=== PATIENT | female | born 1985 | race Caucasian/White ===

== ENCOUNTER 2018-12-05 12:39 | Emergency (ER) | payer OTHER ==
[~2018-12-05] VITALS: Ht 165.1 cm; Wt 56.7 kg
[~2018-12-05 12:39] MED LIST: ALBUTEROL0.09 MG/A2 INH; ANAPROX DS550 MG PO; AUGMENTIN 875 M1 TA1 PO; BACTRIM DS 8001 TA1 PO; BIRTH CONTROL1 EAC1 PO; CIPRO250 MG PO; CIPROFLOXACIN500 MG PO; CLARITIN10 MG PO; CLINDAMYCIN HC300 MG PO; COLACE100 MG PO; COLACE100 MG/10 PO; DIFLUCAN150 MG PO; FLEXERIL10 MG PO; HYDROCODONE BIT1 T11 PO; IRON325 M1 PO; KEFLEX500 MG PO; MACROBID100 M1 PO; MOTRIN800 MG PO; NAPROSYN500 MG PO; NICODERM C7 MG/24 HR TD; NKHM; PERCOCET 325 MG1 TA2 PO; PERCOCET 325 MG1 TA5 PO; PERCOCET 325 MG1 TA6 PO; PHENERGAN25 M3 PO; PRENATAL1 TA2 PO; PYRIDIUM200 MG PO; SILVADENE20 GM T; TRAMADOL HCL50 MG PO; VICODIN ES 7501 TAB PO; ZYRTEC10 MG PO
[2018-12-05 13:29] LABS: BASO # 0.1 10*3/uL (0.0-0.1); BASO % 0.8 % (0.0-1.0); EOS # 0.4 10*3/uL (0.0-0.4); EOS % 3.9 % (1.0-4.0); HEMATOCRIT 35.1 % (37.0-47.0); HEMOGLOBIN 11.3 g/dl (12.0-16.0); LYMPH # 2.4 10*3/uL (1.3-4.4); LYMPH % 23.5 % (27.0-41.0); MEAN CELL VOLUME 88.2 fl (81.0-99.0); MEAN CORPUSCULAR HGB 28.4 pg (27.0-31.0); MEAN CORPUSCULAR HGB CONC 32.2 g/dl (33.0-37.0); MEAN PLATELET VOLUME 10.3 fl (9.6-12.3); MONO # 0.5 10*3/uL (0.1-1.0); MONO % 4.7 % (3.0-9.0); NEUT # 6.9 10*3/uL (2.3-7.9); NEUT % 66.8 % (47.0-73.0); PLATELET COUNT AUTOMATED 218 10*3/uL (130-400); RED BLOOD COUNT 3.98 10*6/uL (4.10-5.10); RED CELL DISTRI WIDTH 14.9 % (0-14.5); WHITE BLOOD COUNT 10.4 10*3/uL (4.8-10.8)
[2018-12-05 13:34] LABS: BILIRUBIN 1+ (NEGATIVE); BLOOD 3+ (NEGATIVE); CLARITY SL CLOUDY (CLEAR); COLOR YELLOW (YELLOW); GLUCOSE NEGATIVE (NEGATIVE); KETONE TRACE (NEGATIVE); LEUKO ESTERASE NEGATIVE (NEGATIVE); NITRITE NEGATIVE (NEGATIVE); SPECIFIC GRAVITY 1.025 (1.005-1.030)
[2018-12-05 13:44] LABS: ALBUMIN 3.5 gm/dl (3.1-4.5); ALKALINE PHOSPHATASE 71 U/L (45-117); BUN 13 mg/dl (7-24); CHLORIDE 109 mmol/L (98-107); CREATININE 0.92 mg/dL (0.55-1.02); POTASSIUM 3.7 mmol/L (3.5-5.1); SGOT/AST 14 IU/L (3-35); SGPT/ALT 22 U/L (12-78); SODIUM 139 mmol/L (136-145); TOTAL PROTEIN 6.6 gm/dL (6.4-8.2)
[2018-12-05 13:46] LABS: BACTERIA TRACE; MUCOUS 2+
[2018-12-05 14:50] VITALS: BP 140/51
[2018-12-05] MEDS ORDERED: ZOFRAN4 MG PO (14:58)
== END 2018-12-05 15:03 | disposition home or self-care (01) ==
LOC: ED 12:39
PROVIDERS: Physician Assistant
DX: B34.9 Viral infection, unspecified (principal); R11.2 Nausea with vomiting, unspecified; R19.7 Diarrhea, unspecified; R53.83 Other fatigue; R53.1 Weakness; Z79.899 Other long term (current) drug therapy

== ENCOUNTER → 2022-04-07 | Outpatient (CLI) | payer OTHER ==
[~2022-04-07] MED LIST changes: +ZOFRAN4 MG PO
== END | disposition home or self-care (01) ==
LOC: CT 04-05 04:05
PROVIDERS: ATTEND Internal Medicine Infectious Disease
DX: J86.9 Pyothorax without fistula (principal); J18.1 Lobar pneumonia, unspecified organism; R59.1 Generalized enlarged lymph nodes; R16.1 Splenomegaly, not elsewhere classified

== ENCOUNTER 2023-01-18 01:16 | Emergency (ER) | payer OTHER ==
[~2023-01-18] VITALS: Ht 172.7 cm; Wt 56.7 kg
[2023-01-18 01:30] VITALS: BP 136/80
[2023-01-18 01:56] LABS: BASO % 0.2 % (0.0-1.0); EOS # 0.2 10*3/uL (0.0-0.4); EOS % 2.2 % (1.0-4.0); LYMPH # 1.8 10*3/uL (1.3-4.4); LYMPH % 21.2 % (27.0-41.0); MEAN CELL VOLUME 81.5 fl (81.0-99.0); MEAN CORPUSCULAR HGB 28.8 pg (27.0-31.0); MEAN CORPUSCULAR HGB CONC 35.3 g/dl (33.0-37.0); MEAN PLATELET VOLUME 10.1 fl (9.6-12.3); MONO # 0.7 10*3/uL (0.1-1.0); MONO % 8.7 % (3.0-9.0); NEUT # 5.7 10*3/uL (2.3-7.9); NEUT % 67.5 % (47.0-73.0); PLATELET COUNT AUTOMATED 171 10*3/uL (130-400); RED BLOOD COUNT 4.66 10*6/uL (4.10-5.10); RED CELL DISTRI WIDTH 12.2 % (0-14.5); WHITE BLOOD COUNT 8.5 10*3/uL (4.8-10.8)
[2023-01-18 02:07] LABS: ACT PARTIAL THROMBO TIME 25.7 SECONDS (20.0-32.1)
[2023-01-18 02:18] LABS: ALKALINE PHOSPHATASE 229 U/L (46-116); BUN 11 mg/dl (9-23); CHLORIDE 111 mmol/L (98-107); ETHYL ALCOHOL 3.1 mg/dl (<3); LIPASE 48 U/L (12-53); POTASSIUM 3.6 mmol/L (3.4-5.1); SGPT/ALT 76 U/L (5-49); TOTAL PROTEIN 6.5 gm/dL (6.0-8.0)
[2023-01-18 03:34] LABS: BILIRUBIN Negative (Negative); BLOOD Negative (Negative); CLARITY Clear (Clear); COLOR Yellow (Yellow); GLUCOSE Negative (Negative); KETONE Negative (Negative); LEUKO ESTERASE Negative (Negative); NITRITE Negative (Negative)
[2023-01-18 03:35] LABS: URINE AMPHETAMINES Negative (1000ng/ml); URINE BARBITURATES Negative (200ng/ml); URINE BENZODIAZEPINES Negative (200ng/ml); URINE CANNABINOIDS (THC) Positive (50ng/ml); URINE COCAINE Negative (300ng/ml); URINE METHADONE Negative (300ng/ml); URINE OPIATES Negative (300ng/ml); URINE PHENCYCLIDINE Negative (25ng/ml)
[2023-01-18 03:47] LABS: WBC 0-2 wbc/hpf (0-5)
[2023-01-18 03:48] LABS: EPITHELIAL CELLS 31-40; RBC 0-2 rbc/hpf (0-2)
== END 2023-01-18 04:12 | disposition home or self-care (01) ==
LOC: ED 01:16
PROVIDERS: Internal Medicine
DX: B34.9 Viral infection, unspecified (principal); R06.02 Shortness of breath; Z98.890 Other specified postprocedural states; Z87.891 Personal history of nicotine dependence; Z79.899 Other long term (current) drug therapy